=== PATIENT | female | born 1990 | race Caucasian/White ===

== ENCOUNTER 2017-03-21 18:54 | Emergency (ER) | payer MEDICAID ==
[~2017-03-21] VITALS: Ht 152.4 cm; Wt 39.9 kg
[2017-03-21 19:24] VITALS: Ht 152.4 cm; Wt 39.9 kg
[2017-03-21] MEDS ORDERED: ACETAMINOPHEN 325 MG TAB PO STA (19:50)
--- NOTE | 2017-03-21 20:29 | RADRPT ---
PROCEDURE: US OB. CLINICAL INDICATION: Vaginal bleeding TECHNIQUE: Multiple sonographic images of the pelvis and gravid uterus were obtained. The images were reviewed on a PACS workstation. COMPARISON: No prior studies are available for comparison. FINDINGS: The cervix is closed with a length of 3.0 cm. There is a single viable intrauterine gestation. Cardiac activity is present with 159 beats per min rao. There is a vertex presentation. The placenta is anterior. There is no evidence for an abruption or placenta previa. Measurements were made in order to determine age. The results are as follows: BPD =2.9 cm HC =11.1 cm AC =9.9 cm FL =1.9 cm Estimated gestational age of approximately 15 weeks and 4 days based on ultrasound measurements. The estimated date of delivery is 09/08/17, based on ultrasound measurements. The EFW = 135 g. The left ovary is normal with normal Doppler flow. The right ovary was not seen. The left ovary truong ures 2.3 x 1.5 cm. RPTAT: AA IMPRESSION: Single viable intrauterine gestation of approximately 15 weeks and 4 days based on ultrasound measu rements. .Eric Souza MD, Date Time Electronically viewed and signed by .Eric Souza MD, MD on 03/21/2017 20:28 .S/
[2017-03-21 20:41] LABS: ADD UMIC NO; UR ASCORBIC ACID NEGATIVE (NEGATIVE); UR BILIRUBIN (Dip) NEGATIVE (NEGATIVE); UR BLOOD (Dip) NEGATIVE (NEGATIVE); UR CLARITY CLEAR (CLEAR); UR COLOR YELLOW (YELLOW); UR GLUCOSE (Dip) NEGATIVE (NEGATIVE); UR KETONES (Dip) 1+ mg/dL (NEGATIVE); UR LEUKOCYTE ESTERASE (Dip) NEGATIVE Leu/ul (NEGATIVE); UR NITRITE (Dip) NEGATIVE (NEGATIVE); UR SPECIFIC GRAVITY (Dip) 1.025 (1.003-1.030); UR TOTAL PROTEIN (Dip) NEGATIVE (NEGATIVE); UR UROBILINOGEN (Dip) NEGATIVE (NEGATIVE)
[2017-03-21 20:52] LABS: BASOPHILS % 0.4 % (0.0-2.0); EOSINOPHILS # 0.4 10^3/ul (0.0-0.5); EOSINOPHILS % 4.9 % (0.0-7.0); HEMATOCRIT 34.7 % (37.0-47.0); HEMOGLOBIN 11.6 g/dl (12.0-16.0); LYMPHOCYTES # 1.7 10^3/ul (0.8-2.9); LYMPHOCYTES % 22.8 % (15.0-51.0); MEAN CORPUSCULAR HEMOGLOBIN 29.7 pg (29.0-33.0); MEAN CORPUSCULAR HGB CONC 33.4 g/dl (32.0-37.0); MEAN PLATELET VOLUME 9.7 fl (7.4-10.4); MONOCYTE # 0.5 10^3/ul (0.3-0.9); MONOCYTES % 6.2 % (0.0-11.0); NEUTROPHIL # 4.8 10^3/ul (1.6-7.5); NEUTROPHILS % 65.4 % (39.0-77.0); PLATELET COUNT 225 10^3/UL (140-415); RED CELL DISTRIBUTION WIDTH 13.2 % (11.5-14.5); WHITE BLOOD COUNT 7.4 10^3/ul (4.8-10.8)
[2017-03-21 22:17] VITALS: BP 118/73; PULSE 78; RESP 20
--- NOTE | 2017-04-01 04:09 | ERD ---
ER Documentation Chief Complaint Chief Complaint mid abd pain x 3 days with diarrhea HPI Patient presents with a chief complaint of mid abdominal pain 3 days with diarrhea. Patient describes diarrhea as liquidy and brown without foul odor. Patient is currently 15 weeks . . No similar symptoms in past. Has not taken any medications to relieve the symptoms. No aggravating or alleviating factors. No denies fever, chills, vaginal bleeding, vaginal discharge, dysuria, urinary frequency, change in quickening, nausea, vomiting, or identifiable patterns of symptoms. Patient has no other complaints and describes no other associated manifestations. Nursing notes have been reviewed and are consistent with history given. ROS All systems reviewed and are negative except as per history of present illness. Allergies Allergies: Coded Allergies: No Known Allergy (Unverified , 03/22/16) PMhx/Soc History of Surgery: No Anesthesia Reaction: No Hx Neurological Disorder: No Hx Respiratory Disorders: No Hx Cardiac Disorders: No Hx Psychiatric Problems: No Hx Miscellaneous Medical Probl: No Hx Alcohol Use: No Hx Substance Use: No Hx Tobacco Use: No Smoking Status: Never smoker Physical Exam Physical Exam Const: Healthy-appearing. Well-nourished. Well-developed. No acute distress. Abd: No suprapubic tenderness. Fundus height WNL. Soft, non tender, non distended. No guarding, masses. Normal bowel sounds. No McBurney's point tenderness. Head: Normocephalic, Atraumatic. Eyes: Non-injected; No scleral erythema, discharge or foreign body. EOMI and MAXINE bilaterally. Ears: Normal External Ears, EACs clear, TM normal bilaterally without erythema. Nose: Normal nose without discharge, septal deviation, or sinus tenderness. Oral: No oral edema visualized. Mucous membranes moist and pink. Neck: No cervical lymphadenopathy, masses or goiter palpated. Trachea midline. Supple ~ No meningismus. Pulm: Good air movement in upper and lower respiratory tracts. No dyspnea, stridor, tripoding or drooling. Clear to auscultation bilaterally. Cardio: Regular rate and rhythm; No murmurs, gallops or rubs auscultated. No JVD grossly observed. Radial and posterior tibial pulses 2+ bilaterally. No cyanosis. Capillary refill less than 2 seconds. MS: Normal motor strength, normal tone with gross examination. Skin: No petechiae or rashes. No ulcer, induration, jaundice. Good turgor. Back: No midline, flank or CVA tenderness. Ext: No cyanosis, edema or palpable cord. Normal movement of all extremities grossly observed. Neur: Awake, alert and oriented x3. Neurovascularly intact bilaterally. Psych: Normal Mood and Affect. Results 24 hrs Laboratory Tests Test 03/21/17 20:15 03/21/17 20:25 Urine Color YELLOW Urine Clarity CLEAR Urine pH 5.0 Urine Specific [place] 1.025 Urine Ketones 1+mg/dL Urine Nitrite NEGATIVEmg/dL Urine Bilirubin NEGATIVEmg/dL Urine Urobilinogen NEGATIVEmg/dL Urine Leukocyte Esterase NEGATIVELeu/ul Urine Hemoglobin NEGATIVEmg/dL Urine Glucose NEGATIVEmg/dL Urine Total Protein NEGATIVEmg/dl White Blood Count 7.410^3/ul Red Blood Count 3.9010^6/ul Hemoglobin 11.6g/dl Hematocrit 34.7% Mean Corpuscular Volume 89.0fl Mean Corpuscular Hemoglobin 29.7pg Mean Corpuscular Hemoglobin Concent 33.4g/dl Red Cell Distribution Width 13.2% Platelet Count 91784^3/UL Mean Platelet Volume 9.7fl Neutrophils % 65.4% Lymphocytes % 22.8% Monocytes % 6.2% Eosinophils % 4.9% Basophils % 0.4% Nucleated Red Blood Cells % 0.0/100WBC Neutrophils # 4.810^3/ul Lymphocytes # 1.710^3/ul Monocytes # 0.510^3/ul Eosinophils # 0.410^3/ul Basophils # 0.010^3/ul Nucleated Red Blood Cells # 0.010^3/ul Beta HCG, Quantitative 04710.0mIU/ml Current Medications Medications (Trade) Dose Ordered Sig/Eddy Route PRN Reason Start Time Stop Time Status Last Admin Dose Admin Acetaminophen (Tylenol Tab) 650 mg ONCE STAT PO 03/21/17 19:50 03/21/17 19:51 DC 03/21/17 20:04 Procedures/MDM Otherwise healthy 26-year-old female who is currently 15 weeks presents with a chief complaint of abdominal pain as described in history and physical. Patient was given acetaminophen in the ED with complete relief of symptoms. The workup included CBC, type and screen, quantitative beta-hCG, urinalysis, urine culture, and an US. Labs are unremarkable. Urinalysis showed 2+ ketones but otherwise unremarkable. The US was read by the radiologist and given the following impression: Single viable intrauterine gestation of approximately 15 weeks and 4 days based on ultrasound measurements. Beta-hC.0 At this time, I have little suspicion for , ectopic , nephrolithiasis, appendicitis, cholecystitis, cholangitis, placenta previa, infection, blood vessel rupture, or PPROM. The current most likely diagnosis is abdominal pain of unknown etiology. I have spoke with the patient regarding their condition and future management. [employer] Supervisor was the nurse. They have verbally responded that they understand their status and treatment plan. The patients vitals are stable, and their current condition is appropriate for discharge. The patient will be given discharge instructions with return precautions. Departure Diagnosis: Primary Impression: Abdominal pain Abdominal location: generalized Qualified Code: R10.84 - Generalized abdominal pain Condition: Stable Patient Instructions: Vaginal Bleed in Additional Instructions: Nimo un seguimiento con null OBGYN dentro de los prximos 1-3 dunn para jonathan evaluacin ms completa y jonathan posible derivacin a un especialista. Devuelva el departamento de emergencia inmediatamente si los sntomas empeoran o cambian. Si tiene alguna pregunta con respecto a los medicamentos, consulte con null farmac utico o con nosotros antes de salir. Si se producen reacciones adversas mientras goldie donal medicamentos, suspenda el tratamiento y regrese inmediatamente al servicio de urgencias. [place] donal medicamentos segn las indicaciones y complete el curso completo del tratamiento. Comments DOS: 03/21/2017 MARIANN MOBLEY PA-C Apr 01, 2017 04:09
== END 2017-03-21 22:26 | disposition home or self-care (01) ==
LOC: FTE 18:54
DX: O26.892 Other specified pregnancy related conditions, second trimester (principal); R10.84 Generalized abdominal pain; R10.2 Pelvic and perineal pain; Z3A.15 15 weeks gestation of pregnancy
CPT/HCPCS: 76801; 81003; 84702; 85025; 86900; 86901; Z7502; Z7610

== ENCOUNTER 2017-08-09 08:07 | Inpatient (IN) | END 2017-08-11 16:27 | disposition home or self-care (01) | DRG 775 ==

== ENCOUNTER 2018-12-05 12:52 | Inpatient (IN) | payer MEDICAID ==
[~2018-12-05] VITALS: Ht 142.2 cm; Wt 44.8 kg
[2018-12-05 13:19] VITALS: Ht 142.2 cm; Wt 44.8 kg
== END 2018-12-08 10:50 | disposition home or self-care (01) | DRG 831 ==
LOC: OBT 12:52 → L-D 12:52 → OBT 14:48 → L-D 14:48
PROVIDERS: ADMIT Obstetrics & Gynecology; ATTEND Obstetrics & Gynecology
DX: O60.03 Preterm labor without delivery, third trimester (principal); K83.1 Obstruction of bile duct; O26.613 Liver and biliary tract disorders in pregnancy, third trimester; O26.879 Cervical shortening, unspecified trimester; O23.43 Unspecified infection of urinary tract in pregnancy, third trimester; O9A.213 Injury, poisoning and certain other consequences of external causes complicating pregnancy, third trimester; T47.4X5A Adverse effect of other laxatives, initial encounter; H53.8 Other visual disturbances; Z3A.33 33 weeks gestation of pregnancy
CPT/HCPCS: 36415; 76705; 76817; 76818; 80053; 81001; 82731; 83735; 83789; 87086; 96372; G0463; J0690; J0702; J3105; J3475; J7120